=== PATIENT | male | born 1965 | race Caucasian/White ===

== ENCOUNTER 2019-01-16 17:30 | Outpatient (CLI) | payer BC | END 2019-01-16 17:31 | disposition home or self-care (01) | LOC: SLEEPLAB 17:30 | PROVIDERS: ATTEND Internal Medicine | DX: G47.33 Obstructive sleep apnea (adult) (pediatric) (principal); R51 Headache; R53.83 Other fatigue; R06.83 Snoring; R35.1 Nocturia; G47.31 Primary central sleep apnea | CPT/HCPCS: 95806 ==

== ENCOUNTER 2019-03-13 20:30 | Outpatient (CLI) | payer BC | END 2019-03-13 20:31 | disposition home or self-care (01) | LOC: SLEEPLAB 20:30 | PROVIDERS: ATTEND Internal Medicine | DX: G47.33 Obstructive sleep apnea (adult) (pediatric) (principal); R53.83 Other fatigue; R51 Headache; R06.83 Snoring; R35.1 Nocturia; R06.3 Periodic breathing; G47.31 Primary central sleep apnea | CPT/HCPCS: 95811 ==

== ENCOUNTER 2019-04-18 13:15 | Outpatient (CLI) | payer BC | END 2019-04-18 13:16 | disposition home or self-care (01) | LOC: ULT 13:15 | PROVIDERS: ATTEND Internal Medicine | DX: G47.31 Primary central sleep apnea (principal); G47.33 Obstructive sleep apnea (adult) (pediatric); I08.3 Combined rheumatic disorders of mitral, aortic and tricuspid valves | CPT/HCPCS: 93306 ==

== ENCOUNTER 2019-07-03 20:30 | Outpatient (CLI) | payer BC | END 2019-07-03 20:31 | disposition home or self-care (01) | LOC: SLEEPLAB 20:30 | PROVIDERS: ATTEND Internal Medicine | DX: G47.33 Obstructive sleep apnea (adult) (pediatric) (principal); R06.3 Periodic breathing; G47.31 Primary central sleep apnea | CPT/HCPCS: 95811 ==

== ENCOUNTER 2020-01-23 06:34 | Outpatient (CLI) | payer BC ==
[2020-01-23 12:09] LABS: Bilirubin Neg (Negative); Blood, Urine 10 (Negative); Clarity Clear (Clear); Glucose, Urine (Dipstick) Normal (Negative); Ketone, Urine Negative (Negative); Leukocyte Negative (Negative); Nitrite Negative (Negative); Protein, Urine (Dipstick) Negative (Neg-Trace); Urobilinogen Normal mg/dL (Less than 2)
[2020-01-23 12:10] LABS: Hemoglobin 14.7 g/dL (14.0-18.0); Mean Corpuscular HGB CONC 33.3 G/DL (32.0-36.0); Mean Platelet Volume 9.3 fl (7.4-10.4); Platelet Count 246 10x3/uL (130-400); RBC Distribution Width 12.2 % (11.5-14.5); Red Blood Cell (RBC) Count 5.07 10x6/uL (4.40-5.80); White Blood Cell (WBC) Count 7.1 10x3/uL (4.5-11.0)
[2020-01-23 12:21] LABS: Anion Gap 16 mmol/L (10-20); BUN (Urea Nitrogen) 23 mg/dL (8.4-25.7); Calc. Creatinine Clearance 0 mL/min (70-130); Calcium 9.5 mg/dL (7.8-10.44); Carbon Dioxide 24 mmol/L (22-29); Chloride 105 mmol/L (98-107); Glucose 97 mg/dL (70-105); Potassium 4.7 mmol/L (3.5-5.1); Sodium 140 mmol/L (136-145)
[2020-01-23 12:33] LABS: PTT 25.9 sec (22.0-33.0); Prothrombin Time 10.6 sec (9.5-12.1)
[2020-01-23 12:45] LABS: RBC/HPF 0-3 HPF (0-3)
[2020-01-23 12:47] LABS: Bacteria/HPF Rare-Few HPF (None Seen); Squamous Epithelial 0-3 HPF (0-3); WBC/HPF None Seen HPF (0-3)
[2020-01-23 23:04] LABS: SARS-CoV-2 MS2 Positive; SARS-CoV-2 N Gene Negative; SARS-CoV-2 S Gene Negative; SARS-CoV-2 by NAA Not Detected (NotDetected); SARS-CoV-2 orf1ab Negative
== END 2020-01-23 06:35 | disposition home or self-care (01) ==
LOC: LABBT 06:34
PROVIDERS: ATTEND Urology
DX: Z01.812 Encounter for preprocedural laboratory examination (principal); Z12.5 Encounter for screening for malignant neoplasm of prostate; N43.3 Hydrocele, unspecified; N43.40 Spermatocele of epididymis, unspecified; R35.0 Frequency of micturition; Z87.442 Personal history of urinary calculi
CPT/HCPCS: 80048; 81001; 85027; 85610; 85730; 87086; 87635; 93005; 93010; G0103; U0003

== ENCOUNTER 2020-01-28 07:04 | Day surgery (SDC) | payer BC ==
[2020-01-27 11:30] VITALS: BMI 26.9
[2020-01-28] MEDS ORDERED: PROPOFOL 200 MG/20 ML VIAL ONE (10:21)
[2020-01-28] MEDS ORDERED: Lidocaine 1% PF 5 ML VIAL ONE (10:21)
[2020-01-28] MEDS ORDERED: Ondansetron PF 4 MG/2 ML Vial ONE (10:21)
[2020-01-28] MEDS ORDERED: Dexamethasone 20 MG/5 ML VIAL ONE (10:21)
[2020-01-28] MEDS ORDERED: Ketorolac Tromethamine 30 MG/ML VIAL ONE (10:21)
[2020-01-28] MEDS ORDERED: Fentanyl 100 MCG/2 ML VIAL ONE (10:48)
[2020-01-28] MEDS ORDERED: Gentamicin 80 MG/2 ML VIAL ONE (10:50)
[2020-01-28] MEDS ORDERED: Bacitracin Zinc Ointment 30 gm TUBE ONE (10:50)
[2020-01-28] MEDS ORDERED: HYDROcodone/Acetaminophen 5/325 mg Tablet ONE (13:14)
--- NOTE | 2020-01-28 15:50 | OP ---
DATE OF PROCEDURE: 01/28/2020 PRIMARY CARE PHYSICIAN: Cherelle Sam MD PREOPERATIVE DIAGNOSES: 1. A 54-year-old male status post vasectomy, with large left spermatocele complicated due to septations versus hydrocele on scrotal ultrasound. 2. Chronic scrotal discomfort. POSTOPERATIVE DIAGNOSES: 1. A 54-year-old male status post vasectomy, with large left spermatocele complicated due to septations versus hydrocele on scrotal ultrasound. 2. Chronic scrotal discomfort. PROCEDURES PERFORMED: Left spermatocelectomy, hydrocelectomy, intraoperative Doppler ultrasound of the left testes ANESTHESIA: LMA. COMPLICATIONS: None apparent. ESTIMATED BLOOD LOSS: Minimal. IV FLUIDS: 1100 mL. SPECIMEN: Spermatocele sac for permanent. INDICATIONS FOR PROCEDURE AND HISTORY: Mr. Mendoza is a pleasant 54-year-old male, truck car and bus cleaner, [employer] field supervisor, who presented for evaluation of left scrotal discomfort. A scrotal ultrasound was initially obtained in July 2019 demonstrating a large left hydrocele with septation measuring 3.8 cm. Subsequently, I saw him for a followup in which he complained of progressive enlargement, discomfort and desires to proceed with spermatocelectomy, hydrocelectomy. He does have a prior history of vasectomy in the remote past. Risks and complications of the procedure were reviewed with him in detail including, but not limited to, bleeding, pain, infection, injury to adjacent organs, wound infection, scrotal hematoma, chronic pain, possible testicular atrophy, and injury to adjacent structures such as vas, epididymis. All questions were answered to his satisfaction, and we discussed options of observation as well, and he desired to proceed with surgery. DESCRIPTION OF PROCEDURE: After an informed consent was signed, the patient was taken to the operating room, placed in supine position with the genital area prepped and draped in the usual surgical sterile fashion. The left hemiscrotum again demonstrates enlargement consistent with a large fluid collection. The [place] left testicle was in the inferior aspect of the scrotum and large fluid collection seen superiorly. At this time, using a 15 blade, we made a mid and left hemiscrotal incision. The infection was carried down to the level of dartos fascia and the tunica vaginalis. The entire testicle, incontinence of the spermatocele, hydrocele, and cord structures were delivered through the scrotal incision. At this time, we further finally dissected using blunt and sharp dissection, mobilizing the entire sac of fluid. Upon further inspection, he had trace hydrocele, not of significance, it was a dominant left spermatocele complex, as it was multi-septated with dense adhesions. The cord structures were freed to the level of the external ring, and subcutaneous fascias were divided accordingly. At this time, we took our time meticulously dissecting the spermatocele sac off the epididymis, the cord structures were identified and dissected. Vascular structures were kept out of harm's way. We used intermittent cautery onto superficial fascia as needed. We were able to completely mobilize the spermatocele sac off the epididymis. Good hemostasis was obtained. This appeared to be multiloculated. With the entire spermatocele sac excised, this was sent for permanent. There was an intermittent compromise of the spermatocele sac, which did decompress during the surgery. However, we will be able to keep the integrity of the spermatocele intact. The edges of the epididymis involved were oversewn with 2-0 chromic. the cord structures were identified demonstrating no active oozing of concern. intraoperative scrotal ultrasound, demonstrating good Doppler flow to the testes. the testicle was then returned to its normal anatomical position in the left hemiscrotum. A [place] drain was placed in the left hemiscrotum. Hospital was out of quarter-inch, therefore we used a half-inch and divided it in two for a thinner drain exiting the left hemiscrotum, this was sutured to skin using 3-0 nylon. The wound was copiously irrigated with antibiotic irrigation. The dartos fascia was then closed with 2-0 Vicryl in a running fashion, skin closed with 2-0 chromic in a vertical mattress fashion. Scrotal dressing was applied and he tolerated the procedure well and transported to the recovery room in stable condition. Job ID: [id number] [facility]
== END 2020-01-28 14:25 | disposition home or self-care (01) ==
LOC: SDC 07:04
PROVIDERS: ATTEND Urology
PROC: 0VB70ZZ Excision of Left Tunica Vaginalis, Open Approach (ICD-10-PCS; principal; 2020-01-28)
PROC: 0VBK0ZZ Excision of Left Epididymis, Open Approach (ICD-10-PCS; principal; 2020-01-28)
DX: N43.3 Hydrocele, unspecified (principal); N43.40 Spermatocele of epididymis, unspecified; E78.5 Hyperlipidemia, unspecified; F41.9 Anxiety disorder, unspecified; G47.30 Sleep apnea, unspecified; Z79.82 Long term (current) use of aspirin; Z87.891 Personal history of nicotine dependence
CPT/HCPCS: 88304; J0690; J1100; J1580; J1885; J2405; J2704; J3010; J3370